=== PATIENT | female | born 1965 | race Caucasian/White ===

== ENCOUNTER 2018-08-27 07:15 | Day surgery (SDC) | payer BC ==
--- NOTE | 2018-08-16 09:23 | HP ---
PREOPERATIVE HISTORY AND PHYSICAL: DATE OF ADMISSION/SURGERY: 08/27/18 DATE OF OFFICE VISIT/ENCOUNTER: 07/31/18 ATTENDING SURGEON: Belinda Platt MD* (dictated by ZHANE Landers). PROCEDURE: Right wrist carpal tunnel release. CHIEF COMPLAINT: Numbness and tingling, right hand. HISTORY OF PRESENT ILLNESS: This is a 53-year-old female, who is complaining of numbness and tingling in her right hand that has been present for about 6 weeks. She denies any known injury. She has a history of multiple sclerosis, but she says that this feels quite different than her MS symptoms usually do. She has been having trouble using her right hand for writing and working on the computer. When she rests her hand it feels better, but she oftentimes has pain and numbness when she wakes up in the morning. The specific fingers which are numb are mainly her thumb, index finger and sometimes her middle finger. She has received a cortisone injection in the past, but this was not particularly helpful in relieving her symptoms. She has consented to proceed with surgical intervention at this time. PAST MEDICAL HISTORY: 1. Multiple sclerosis. 2. Hypertension. 3. Depression/anxiety. 4. GERD. 5. Constipation. 6. Seasonal allergies. PAST SURGICAL HISTORY: 1. . 2. Cholecystectomy. 3. Hysterectomy. 4. Ganglion cyst excision. 5. Left foot surgery x2. 6. C-spine fusion at C6-C7. No known anesthesia problems. CURRENT MEDICATIONS: 1. Baclofen 10 mg daily. 2. Escitalopram oxalate 20 mg daily. 3. FiberCon 625 mg 2 tabs twice a day. 4. Gilenya 0.5 mg daily. 5. MiraLAX daily. 6. Olmesartan medoxomil/hydrochlorothiazide 1 tab daily. 7. Omeprazole 20 mg daily. 8. Tylenol Extra Strength 500 mg 2 tabs twice daily. 9. Vitamin D3 at 5000 units daily. 10. Zyrtec allergy 10 mg 1 tab daily. ALLERGIES: 1. CODEINE causes severe nausea and vomiting. 2. MRI CONTRAST. FAMILY MEDICAL HISTORY: Hypertension and cancer. SOCIAL HISTORY: The patient is a nurse at [employer]. She is a former smoker. She quit approximately 2 years ago. Prior to that, she smoked half-a- pack a day and had done so for 30 years. She denies recreational drug use. She drinks alcohol on rare occasions. REVIEW OF SYSTEMS: Negative for general, cephalic, cardiovascular, respiratory , GI, , other musculoskeletal, integumentary, endocrine, neurologic, and hematologic symptoms. Infectious Disease: Negative for MRSA, hepatitis C, HIV. PHYSICAL EXAMINATION GENERAL: Well-developed, well-nourished 53-year-old female, in no acute distress. VITAL SIGNS: Height 5 feet 6-1/2 inches, weight 245 pounds. Pulse rate 84, blood pressure 128/84. HEENT: Normocephalic, atraumatic. Pupils are equal, round, and reactive to light and accommodation. Extraocular movements are intact. Throat is clear. NECK: Supple. No palpable lymph nodes. PULMONARY: Lungs are clear to auscultation bilaterally. No wheezes, rales, or rhonchi. CARDIOVASCULAR: Regular rate and rhythm. S1, S2. No murmurs, rubs, or gallops. No edema. ABDOMEN: Positive bowel sounds. Soft, nontender. NEUROLOGICAL: Alert and oriented x3. Cranial nerves II through XII are intact. Sensation is intact to light touch. MUSCULOSKELETAL: On exam of her right hand, there is no thenar wasting. She has slight weakness with thumb abduction. She can fully flex and extend her fingers. She has a positive median nerve compression test at the carpal tunnel, which causes numbness in her median nerve innervated fingers. She has good strength resisting finger abduction. IMPRESSION: Right carpal tunnel syndrome. PLAN: The patient is scheduled to undergo a right wrist carpal tunnel release with Dr. Platt on 08/27/18. She will return to the office 10 days postop for followup and suture removal. She will plan on using [id number] medications for postoperative pain management. ZHANE LANDERS [id number]/[facility] #: [id number] MTDBarbie
[~2018-08-27 07:15] MED LIST: Buffered Lidocaine 0.9% SYRIN* 5 ML/SYR SYRINGE INTRADERM ONE
[2018-08-27] MEDS ORDERED: Lidocaine 1% INJ* 10 MG/ML 30 ML SDV ONE (08:47)
[2018-08-27] MEDS ORDERED: fentaNYL* 50 MCG/ML 2 ML VIAL (100 MCG VIAL) ONE (09:10)
[2018-08-27] MEDS ORDERED: Midazolam* 1 MG/ML 5 ML VIAL (5 MG) ONE (09:10)
[2018-08-27 09:41] VITALS: BP 123/73
[2018-08-27] MEDS ORDERED: Naloxone* 0.4 MG/ML 1 ML VIAL IV PRN (11:01)
--- NOTE | 2018-08-27 21:50 | OP ---
DATE OF OPERATION: 08/27/18 [facility] DATE OF : 69 SURGEON: Belinda Platt MD STAFF ANESTHETIST: ZHANE Matthews ANESTHESIA: Local MAC. PRE-OP DIAGNOSIS: Right carpal tunnel syndrome. POST-OP DIAGNOSIS: Right carpal tunnel syndrome. OPERATIVE PROCEDURE: Right carpal tunnel release. INDICATIONS: Mary Siu is a 53-year-old female with numbness and tingling in the median nerve distribution of her right hand. She presents for right carpal tunnel release. ESTIMATED BLOOD LOSS: Zero. TOURNIQUET TIME: About 8 minutes. DESCRIPTION OF PROCEDURE: The patient was brought to the operating room, was given a sedation anesthetic, and a local infiltration of 10 cc of 1% plain lidocaine in the palm of her right hand. The skin of her right hand and forearm was prepped and draped in the usual sterile fashion. The hand and forearm were exsanguinated and the tourniquet elevated to 250 mmHg. A longitudinal incision was made in the palm in line with the ring finger. We dissected sharply through the subcutaneous tissue down to the transverse carpal ligament. The ligament was divided sharply with a knife and then more proximally with the scissors. The nerve was dissected free from the surrounding tissue and there was an area of moderate compression at the mid portion of the ligament. The wound was irrigated and the skin edges reapproximated with 4-0 nylon suture. The wound was dressed with Xeroform, 4x4 , Webril, and an Luis E wrap. The patient tolerated the procedure well and was brought to the recovery room in good condition. [id number]/[facility] #: [id number] [facility]ENTER[facility]bie
== END 2018-08-27 09:56 | disposition home or self-care (01) ==
LOC: OREAST 07:15
PROVIDERS: ATTEND Orthopaedic Surgery
DX: G56.01 Carpal tunnel syndrome, right upper limb (principal); G35 Multiple sclerosis; I10 Essential (primary) hypertension; F41.8 Other specified anxiety disorders; K21.9 Gastro-esophageal reflux disease without esophagitis; J30.2 Other seasonal allergic rhinitis; Z87.891 Personal history of nicotine dependence
CPT/HCPCS: J2250; J3010